=== PATIENT | male | born 1970 | race Caucasian/White ===

== ENCOUNTER → 2022-03-31 | Outpatient (CLI) | payer BC ==
--- NOTE | 2022-03-31 16:10 | Diagnostic Imaging Report ---
PROCEDURE: US Scrotum. TECHNIQUE: Multiple real-time grayscale images were obtained over the scrotum in various projections bilaterally. INDICATION: Swollen scrotum. FINDINGS: Right testicle measures 5.3 x 3.1 x 3 cm. Left testicle measures 5.3 x 3.2 x 3.1 cm. There are no masses. There is normal blood flow. The epididymides are not enlarged. There are large bilateral hydroceles. There are no varicoceles. IMPRESSION: Large bilateral hydroceles. Dictated by: Dictated on workstation # [id number]
== END ==
LOC: RAD 15:31
PROVIDERS: ATTEND Nurse Practitioner Family
DX: N43.3 Hydrocele, unspecified (principal)
CPT/HCPCS: 76870